=== PATIENT | male | born 1965 | race Caucasian/White ===

== ENCOUNTER 2021-06-24 22:14 | Inpatient (IN) ==
[2021-06-25 01:35] LABS: Basophils # 0.1 K/mcL (0.0-0.2); Basophils % 0.7 %; Eosinophils # 0.1 K/mcL (0.0-0.6); Eosinophils % 0.7 %; Hematocrit 40.3 % (37.5-50.1); Hemoglobin 13.2 g/dL (12.9-16.9); Immature Granulocytes % 1.1 % (0-4); Lymphocytes # 1.7 K/mcL (0.6-4.6); Lymphocytes % 23.6 %; Mean Corpuscular HGB Conc 32.8 g/dL (31.6-35.5); Mean Corpuscular Volume 85.6 fL (83.0-100.0); Mean Platelet Volume 10.1 fL (9.4-12.4); Monocytes # 0.4 K/mcL (0.0-1.3); Monocytes % 6.2 %; Neutrophils # 4.8 K/mcL (1.6-8.9); Platelet Count 260 K/mcL (140-400); Red Blood Count 4.71 M/mcL (4.19-5.50); Red Cell Distribution Width 14.1 % (11.5-14.5); Segmented Neutrophils % 67.7 %; White Blood Count 7.1 K/mcL (4.3-11.1)
[2021-06-25 01:56] LABS: BUN/Creatinine Ratio 13 (6-26); Blood Urea Nitrogen 10 mg/dL (6-20); Calcium 8.4 mg/dL (8.6-10.3); Carbon Dioxide 26 mEq/L (23-29); Chloride 93 mEq/L (98-107); Glucose 323 mg/dL (70-105); Osmolality,Calculated 282 (280-300); Potassium 4.2 mEq/L (3.5-5.1); Sodium 130 mEq/L (136-145); Troponin I < 0.03 ng/mL (< 0.04); eGFR For African Americans > 60 (> 60); eGFR For Non-African Americans > 60 (> 60)
[2021-06-25] MEDS ORDERED: Isovue-370 500 ML BOTTLE IVP ONE (03:04)
[2021-06-25] MEDS ORDERED: 0.9 % Sodium Chloride 500 ML IV ONE (04:29)
[2021-06-25 05:17] LABS: Alanine Aminotransferase 29 Units/L (7-52); Albumin 3.5 g/dL (3.5-5.7); Albumin/Globulin Ratio 0.7 (1.1-2.2); Alkaline Phosphatase 41 Units/L (34-104); Aspartate Amino Transferase 38 Units/L (13-39); Bilirubin,Direct 0.5 mg/dL (0.0-0.2); Bilirubin,Indirect 0.6 mg/dL (0.0-1.0); Bilirubin,Total 1.1 mg/dL (0.3-1.0); Globulin 4.7 g/dL (2.4-3.5); Total Protein 8.2 g/dL (6.4-8.9)
[2021-06-25] MEDS ORDERED: Naloxone 0.4 MG/ML INJ IVP PRN (05:24)
[2021-06-25] MEDS ORDERED: Melatonin 3 MG TABLET PO PRN (05:24)
[2021-06-25] MEDS ORDERED: Acetaminophen 325 MG TABLET PO PRN (05:24)
[2021-06-25] MEDS ORDERED: Ondansetron ODT 4 MG TAB.RAPDIS SL PRN (05:24)
[2021-06-25] MEDS ORDERED: *HR* OxyCODONE Immed Rel 5 MG TABLET PO PRN (06:00)
[2021-06-25] MEDS ORDERED: *HR* Heparin 5,000 UNIT/ML VIAL SQ SCH (06:00)
[2021-06-25] MEDS ORDERED: *HR* HYDROcodone/Acet 5/325 mg TABLET PO PRN (06:00)
[2021-06-25] MEDS ORDERED: D5% in Water 1,000 ML IVC PRN (06:10)
[2021-06-25] MEDS ORDERED: Dextrose Gel 15 GM/37.5 ML TUBE PO PRN ×2 (06:10)
[2021-06-25] MEDS ORDERED: *HR* Dextrose 50 % in Water (Syg) 50 ML SYRINGE IVP PRN (06:10)
[2021-06-25] MEDS ORDERED: Remdesivir 200 MG in 0.9 % Sodium Chloride 100 ML IVPB ONE (07:00)
[2021-06-25] MEDS ORDERED: 0.9 % Sodium Chloride 1,000 ML ONE (08:27)
[2021-06-25] MEDS: Insulin LISPRO 300 UNITS/3 ML VIAL SUBQ SCH ×3 (09:00→18:26)
[2021-06-25] MEDS: dexAMETHasone 4 MG TABLET PO SCH (09:00)
[2021-06-25] MEDS: *HR* Enoxaparin 40 MG/0.4 ML SYRINGE SQ SCH ×2 (12:16→21:50)
[2021-06-25] MEDS ORDERED: Insulin LISPRO 300 UNITS/3 ML VIAL SUBQ ONE (12:35)
[2021-06-25 17:15] LABS: Influenza A PCR Negative (Negative); Influenza B PCR Negative (Negative); Resp. Syncytial Virus PCR Negative (Negative)
[2021-06-25 17:27] LABS: SARS-CoV-2 by PCR (In House) Positive (Negative)
[2021-06-25] MEDS: Furosemide 20 MG TABLET PO SCH (18:23)
[2021-06-25] MEDS ORDERED: Insulin DETEMIR 100 UNIT/ML X5UNITS SUBQ SCH (21:00)
[2021-06-25] MEDS ORDERED: Insulin LISPRO 300 UNITS/3 ML VIAL SUBQ SCH ×3 (21:00)
[2021-06-26 03:21] LABS: Hematocrit 37.7 % (37.5-50.1); Hemoglobin 12.4 g/dL (12.9-16.9); Mean Corpuscular HGB Conc 32.9 g/dL (31.6-35.5); Mean Corpuscular Hemoglobin 28.8 pg (28.0-33.3); Mean Corpuscular Volume 87.5 fL (83.0-100.0); Mean Platelet Volume 10.8 fL (9.4-12.4); Platelet Count 289 K/mcL (140-400); Red Blood Count 4.31 M/mcL (4.19-5.50); Red Cell Distribution Width 13.9 % (11.5-14.5); White Blood Count 6.7 K/mcL (4.3-11.1)
[2021-06-26 03:30] LABS: Alanine Aminotransferase 36 Units/L (7-52); Albumin 3.3 g/dL (3.5-5.7); Albumin/Globulin Ratio 0.7 (1.1-2.2); Alkaline Phosphatase 42 Units/L (34-104); Aspartate Amino Transferase 36 Units/L (13-39); BUN/Creatinine Ratio 26 (6-26); Bilirubin,Direct 0.3 mg/dL (0.0-0.2); Bilirubin,Indirect 0.5 mg/dL (0.0-1.0); Bilirubin,Total 0.8 mg/dL (0.3-1.0); Blood Urea Nitrogen 19 mg/dL (6-20); Calcium 8.4 mg/dL (8.6-10.3); Carbon Dioxide 25 mEq/L (23-29); Chloride 98 mEq/L (98-107); Globulin 4.5 g/dL (2.4-3.5); Glucose 408 mg/dL (70-105); Magnesium 2.5 mg/dL (1.6-2.6); Osmolality,Calculated 297 (280-300); Potassium 4.3 mEq/L (3.5-5.1); Sodium 134 mEq/L (136-145); Total Protein 7.8 g/dL (6.4-8.9); eGFR For African Americans > 60 (> 60); eGFR For Non-African Americans > 60 (> 60)
[2021-06-26] MEDS ORDERED: Insulin DETEMIR 100 UNIT/ML X5UNITS SUBQ SCH ×2 (09:30→21:00)
[2021-06-26] MEDS: Insulin LISPRO 300 UNITS/3 ML VIAL SUBQ SCH ×3 (10:12→16:44)
[2021-06-26] MEDS: dexAMETHasone 4 MG TABLET PO SCH (10:13)
[2021-06-26] MEDS: *HR* Enoxaparin 40 MG/0.4 ML SYRINGE SQ SCH ×2 (10:13→19:59)
[2021-06-26] MEDS: Furosemide 20 MG TABLET PO SCH ×2 (10:23→16:43)
[2021-06-26] MEDS: Remdesivir 100 MG in 0.9 % Sodium Chloride 100 ML IVPB SCH (10:24)
[2021-06-26] MEDS: Vancomycin 2,000 MG/520 ML IV.SOLN IVPB SCH ×2 (10:34→21:42)
[2021-06-26] MEDS ORDERED: Insulin LISPRO 300 UNITS/3 ML VIAL SUBQ ONE ×2 (17:05→21:30)
[2021-06-26] MEDS: Benzonatate 100 MG CAPSULE PO SCH (19:59)
[2021-06-26] MEDS: Gabapentin 300 MG CAPSULE PO SCH (19:59)
[2021-06-27 06:47] LABS: Basophils % 0.5 %; Hematocrit 38.5 % (37.5-50.1); Hemoglobin 12.3 g/dL (12.9-16.9); Immature Granulocytes % 3.1 % (0-4); Lymphocytes # 1.1 K/mcL (0.6-4.6); Lymphocytes % 14.3 %; Mean Corpuscular HGB Conc 31.9 g/dL (31.6-35.5); Mean Corpuscular Hemoglobin 28.5 pg (28.0-33.3); Mean Corpuscular Volume 89.1 fL (83.0-100.0); Mean Platelet Volume 10.5 fL (9.4-12.4); Monocytes # 0.5 K/mcL (0.0-1.3); Monocytes % 6.3 %; Platelet Count 310 K/mcL (140-400); Red Blood Count 4.32 M/mcL (4.19-5.50); Red Cell Distribution Width 13.9 % (11.5-14.5); Segmented Neutrophils % 75.8 %
[2021-06-27 07:08] LABS: Albumin 3.2 g/dL (3.5-5.7); Albumin/Globulin Ratio 0.8 (1.1-2.2); Bilirubin,Direct 0.1 mg/dL (0.0-0.2); Bilirubin,Indirect 0.4 mg/dL (0.0-1.0); Bilirubin,Total 0.5 mg/dL (0.3-1.0); Total Protein 7.2 g/dL (6.4-8.9)
[2021-06-27] MEDS ORDERED: Insulin DETEMIR 100 UNIT/ML X5UNITS SUBQ SCH (09:00)
[2021-06-27 09:58] LABS: Alanine Aminotransferase 28 Units/L (7-52); Albumin 3.2 g/dL (3.5-5.7); Albumin/Globulin Ratio 0.8 (1.1-2.2); Alkaline Phosphatase 44 Units/L (34-104); Aspartate Amino Transferase 21 Units/L (13-39); BUN/Creatinine Ratio 28 (6-26); Bilirubin,Total 0.5 mg/dL (0.3-1.0); Blood Urea Nitrogen 22 mg/dL (6-20); Carbon Dioxide 28 mEq/L (23-29); Chloride 100 mEq/L (98-107); Glucose 414 mg/dL (70-105); Osmolality,Calculated 301 (280-300); Sodium 135 mEq/L (136-145); Total Protein 7.2 g/dL (6.4-8.9); eGFR For African Americans > 60 (> 60); eGFR For Non-African Americans > 60 (> 60)
[2021-06-27] MEDS: dexAMETHasone 4 MG TABLET PO SCH (09:59)
[2021-06-27] MEDS: Benzonatate 100 MG CAPSULE PO SCH ×3 (09:59→20:16)
[2021-06-27] MEDS: lisinopriL 20 MG TABLET PO SCH (10:00)
[2021-06-27] MEDS: allopurinoL 100 MG TABLET PO SCH (10:00)
[2021-06-27] MEDS: Gabapentin 300 MG CAPSULE PO SCH ×3 (10:00→20:16)
[2021-06-27] MEDS: Furosemide 20 MG TABLET PO SCH (10:01)
[2021-06-27] MEDS: *HR* Enoxaparin 40 MG/0.4 ML SYRINGE SQ SCH ×2 (10:05→20:16)
[2021-06-27] MEDS: Remdesivir 100 MG in 0.9 % Sodium Chloride 100 ML IVPB SCH (10:08)
[2021-06-27] MEDS: Insulin LISPRO 300 UNITS/3 ML VIAL SUBQ SCH ×8 (10:15→21:38)
[2021-06-27 10:46] LABS: Estimated Average Glucose 306 mg/dl; Hemoglobin A1C 12.3 %
[2021-06-27 10:56] LABS: C-Reactive Protein 88 mg/L (Less than 10)
[2021-06-27] MEDS: Fluticasone Propionate Nasal 50 MCG/SPRAY BOTTLE NS SCH (13:42)
[2021-06-27] MEDS: Vancomycin 2,000 MG/520 ML IV.SOLN IVPB SCH (13:42)
[2021-06-27 14:41] LABS: Acinetobacter baumannii by PCR Not Detected (Not Detect); Candida albicans by PCR Not Detected (Not Detect); Candida glabrata by PCR Not Detected (Not Detect); Candida krusei by PCR Not Detected (Not Detect); Candida parapsilosis by PCR Not Detected (Not Detect); Candida tropicalis by PCR Not Detected (Not Detect); Enterobacter cloacae Cmplx PCR Not Detected (Not Detect); Enterobacteriaceae by PCR Not Detected (Not Detect); Enterococcus by PCR Not Detected (Not Detect); Escherichia coli by PCR Not Detected (Not Detect); Klebsiella oxytoca by PCR Not Detected (Not Detect); Klebsiella pneumoniae by PCR Not Detected (Not Detect); Proteus by PCR Not Detected (Not Detect); Pseudomonas aeruginosa by PCR Not Detected (Not Detect); Serratia marcescens by PCR Not Detected (Not Detect); Staphylococcus aureus by PCR Not Detected (Not Detect); Staphylococcus by PCR DETECTED (Not Detect); Streptococcus agalactiae(B)PCR Not Detected (Not Detect); Streptococcus by PCR Not Detected (Not Detect); Streptococcus pneumoniae PCR Not Detected (Not Detect); Streptococcus pyogenes (A) PCR Not Detected (Not Detect); mecA Methicillin-Resist Gene DETECTED (Not Detect)
[2021-06-27] MEDS: Insulin DETEMIR 100 UNIT/ML X5UNITS SUBQ SCH (20:17)
[2021-06-27] MEDS: Vancomycin 1,500 MG/265 ML IV.SOLN IVPB SCH (23:03)
[2021-06-28] MEDS: Vancomycin 1,500 MG/265 ML IV.SOLN IVPB SCH ×2 (07:20→14:52)
[2021-06-28 07:49] LABS: Alanine Aminotransferase 30 Units/L (7-52); Albumin 3.3 g/dL (3.5-5.7); Albumin/Globulin Ratio 0.9 (1.1-2.2); Alkaline Phosphatase 41 Units/L (34-104); Aspartate Amino Transferase 23 Units/L (13-39); BUN/Creatinine Ratio 25 (6-26); Bilirubin,Direct 0.2 mg/dL (0.0-0.2); Bilirubin,Indirect 0.2 mg/dL (0.0-1.0); Bilirubin,Total 0.4 mg/dL (0.3-1.0); Blood Urea Nitrogen 21 mg/dL (6-20); Calcium 9.2 mg/dL (8.6-10.3); Carbon Dioxide 30 mEq/L (23-29); Chloride 102 mEq/L (98-107); Globulin 3.8 g/dL (2.4-3.5); Glucose 301 mg/dL (70-105); Osmolality,Calculated 298 (280-300); Potassium 4.4 mEq/L (3.5-5.1); Sodium 137 mEq/L (136-145); Total Protein 7.1 g/dL (6.4-8.9); eGFR For African Americans > 60 (> 60); eGFR For Non-African Americans > 60 (> 60)
[2021-06-28] MEDS: Fluticasone Propionate Nasal 50 MCG/SPRAY BOTTLE NS SCH (09:44)
[2021-06-28] MEDS: Insulin LISPRO 300 UNITS/3 ML VIAL SUBQ SCH ×8 (09:44→21:27)
[2021-06-28] MEDS: Insulin DETEMIR 100 UNIT/ML X5UNITS SUBQ SCH ×2 (09:45→21:27)
[2021-06-28] MEDS: lisinopriL 20 MG TABLET PO SCH (09:46)
[2021-06-28] MEDS: Benzonatate 100 MG CAPSULE PO SCH ×3 (09:46→21:27)
[2021-06-28] MEDS: Furosemide 20 MG TABLET PO SCH (09:46)
[2021-06-28] MEDS: dexAMETHasone 4 MG TABLET PO SCH (09:46)
[2021-06-28] MEDS: Gabapentin 300 MG CAPSULE PO SCH ×3 (09:46→21:27)
[2021-06-28] MEDS: allopurinoL 100 MG TABLET PO SCH (09:46)
[2021-06-28] MEDS: *HR* Enoxaparin 40 MG/0.4 ML SYRINGE SQ SCH ×2 (09:47→21:26)
[2021-06-28] MEDS: Remdesivir 100 MG in 0.9 % Sodium Chloride 100 ML IVPB SCH (09:48)
[2021-06-28] MEDS ORDERED: 0.9 % Sodium Chloride 1,000 ML IVC ONE (17:40)
[2021-06-28] MEDS: Vancomycin 1,250 MG/262.5 ML IV.SOLN IVPB SCH (23:39)
[2021-06-29 05:44] LABS: Alanine Aminotransferase 40 Units/L (7-52); Albumin 3.1 g/dL (3.5-5.7); Albumin/Globulin Ratio 0.9 (1.1-2.2); Alkaline Phosphatase 43 Units/L (34-104); Aspartate Amino Transferase 28 Units/L (13-39); BUN/Creatinine Ratio 21 (6-26); Bilirubin,Direct 0.2 mg/dL (0.0-0.2); Bilirubin,Indirect 0.3 mg/dL (0.0-1.0); Bilirubin,Total 0.5 mg/dL (0.3-1.0); Blood Urea Nitrogen 17 mg/dL (6-20); Calcium 8.8 mg/dL (8.6-10.3); Carbon Dioxide 30 mEq/L (23-29); Chloride 103 mEq/L (98-107); Globulin 3.6 g/dL (2.4-3.5); Glucose 328 mg/dL (70-105); Osmolality,Calculated 292 (280-300); Potassium 4.4 mEq/L (3.5-5.1); Sodium 134 mEq/L (136-145); Total Protein 6.7 g/dL (6.4-8.9); eGFR For African Americans > 60 (> 60); eGFR For Non-African Americans > 60 (> 60)
[2021-06-29] MEDS: Vancomycin 1,250 MG/262.5 ML IV.SOLN IVPB SCH (07:58)
[2021-06-29] MEDS: dexAMETHasone 4 MG TABLET PO SCH (07:59)
[2021-06-29] MEDS: Insulin DETEMIR 100 UNIT/ML X5UNITS SUBQ SCH (07:59)
[2021-06-29] MEDS: allopurinoL 100 MG TABLET PO SCH (07:59)
[2021-06-29] MEDS: lisinopriL 20 MG TABLET PO SCH (07:59)
[2021-06-29] MEDS: Benzonatate 100 MG CAPSULE PO SCH ×2 (07:59→14:41)
[2021-06-29] MEDS: Furosemide 20 MG TABLET PO SCH (07:59)
[2021-06-29] MEDS: Insulin LISPRO 300 UNITS/3 ML VIAL SUBQ SCH ×4 (08:10→12:12)
[2021-06-29] MEDS: *HR* Enoxaparin 40 MG/0.4 ML SYRINGE SQ SCH (08:11)
[2021-06-29] MEDS: Fluticasone Propionate Nasal 50 MCG/SPRAY BOTTLE NS SCH (08:11)
[2021-06-29] MEDS: Gabapentin 300 MG CAPSULE PO SCH ×2 (08:12→14:41)
[2021-06-29] MEDS: Remdesivir 100 MG in 0.9 % Sodium Chloride 100 ML IVPB SCH (10:30)
[2021-06-29 11:24] VITALS: BP 130/84; PULSE 61; TEMP 97.8
[2021-06-29 12:07] VITALS: O2SAT 92
== END 2021-06-29 15:24 | disposition home or self-care (01) | DRG 177 ==
LOC: EMEROOARM 22:14 → 3NENU 22:14 → SUATTDRO 06-25 05:07 → 3NENU 06-25 05:45 → SUATTDRO 06-25 15:51
PROVIDERS: ADMIT Family Medicine; ATTEND Hospitalist